=== PATIENT | male | born 1995 | race Caucasian/White ===

== ENCOUNTER 2020-07-28 11:51 | Emergency (ER) | payer MEDICAID ==
[~2020-07-28] VITALS: Ht 188 cm; Wt 97.4 kg
[2020-07-28 11:58] VITALS: BP 155/86
[2020-07-28] MEDS ORDERED: ketorolac trometh inj. 60 MG/2 ML VIAL IM ONE (12:05)
[2020-07-28] MEDS ORDERED: penicillin V potassium 500mg tablet PO ONE (12:05)
[2020-07-28] MEDS ORDERED: PENI-88 PO (12:10)
== END 2020-07-28 12:30 | disposition home or self-care (01) ==
LOC: ER 11:52
DX: K02.9 Dental caries, unspecified (principal); K04.7 Periapical abscess without sinus; R50.9 Fever, unspecified; Z88.5 Allergy status to narcotic agent; Z79.2 Long term (current) use of antibiotics
CPT/HCPCS: 96372; 99283; J1885